=== PATIENT | female | born 1945 | race Two or more races ===

== ENCOUNTER → 2023-11-10 11:29 | Outpatient (REF) | payer MEDICARE, BC, SELFPAY ==
[2023-11-10 13:09] LABS: % Basophils 0.8 % (0-2); % Eosinophils 2.8 % (0-6); % Immature Granulocytes 0.6 % (0-0.5); % Lymphocytes 24.6 % (20.5-51.1); % Monocytes 9.9 % (1.7-9.3); % Neutrophils 61.3 % (42.2-75.2); Absolute Basophils 0.1 10^3/uL (0-0.2); Absolute Eosinophils 0.3 10^3/uL (0-0.7); Absolute Immature Granulocytes 0.1 10^3/uL (0-0.05); Absolute Lymphocytes 2.2 10^3/uL (1.2-3.4); Absolute Monocytes 0.9 10^3/uL (0.1-0.6); Absolute Neutrophils 5.4 10^3/uL (1.4-6.5); Hematocrit 30.3 % (37.0-47.0); Hemoglobin 9.8 g/dL (12.0-16.0); Mean Corp Hgb Conc. 32.3 g/dL (33.0-37.0); Mean Corpuscular Hgb 34.1 pg (27.0-31.0); Mean Corpuscular Volume 105.6 fL (81.0-99.0); Mean Platelet Volume 10.5 fL (7.4-10.4); Nucleated Red Blood Cells % 0 %; Platelet Count 349 10^3/uL (130-400); Red Blood Cell Count 2.87 10^6/uL (4.20-5.40); Red Cell Dist. Width 13.5 % (11.5-14.5); White Blood Cell Count 8.9 10^3/uL (4.8-10.8)
[2023-11-10 13:23] LABS: ALT (SGPT) 22 U/L (0-35); AST (SGOT) 26 U/L (14-36); Albumin 4.1 g/dl (3.5-5.0); Alkaline Phosphatase 51 U/L (38-126); Blood Urea Nitrogen 18 mg/dl (7-17); Calcium 9.4 mg/dl (8.4-10.2); Carbon Dioxide 25 mmol/L (22-30); Chloride 100 mmol/L (98-107); Glucose 93 mg/dl (70-99); Potassium 4.6 mmol/L (3.5-5.1); Sodium 135 mmol/L (135-145); Total Bilirubin 0.6 mg/dl (0.2-1.3); Total Protein 6.5 g/dl (6.3-8.2); eGFR > 60.00
[2023-11-10 13:37] LABS: Free T4 1.07 ng/dl (0.78-2.19); Vitamin D, 25-OH*** 36.8 ng/mL (30-80)
[2023-11-10 13:50] LABS: TSH Reflex To Free T4 5.71 uIU/ml (0.47-4.68)
[2023-11-12 14:35] LABS: Iron 31 ug/dl (37-170)
[2023-11-12 15:43] LABS: Folate > 20.0 ng/ml (2.76-20); Vitamin B12 384 pg/ml (239-931)
== END ==
LOC: OLABPV 11:29
PROVIDERS: ATTENDING PHYSICIAN Nurse Practitioner Family
DX: R53.83 Other fatigue (principal); E55.9 Vitamin D deficiency, unspecified; I10 Essential (primary) hypertension; R79.9 Abnormal finding of blood chemistry, unspecified; Z79.899 Other long term (current) drug therapy
CPT/HCPCS: 36415; 80053; 82306; 82565; 82607; 82728; 82746; 83540; 84439; 84443; 85025

== ENCOUNTER → 2025-01-30 17:43 | Outpatient (REF) | payer MEDICARE, BC, SELFPAY ==
[2025-01-30 18:05] LABS: Urine Character Clear (Clear)
[2025-01-30 18:12] LABS: Urine Red Blood Cell 0-2 /HPF (0-2); Urine Squamous Cell 0-2 /LPF (Few)
== END ==
LOC: OLABPV 17:43
PROVIDERS: ATTENDING PHYSICIAN Nurse Practitioner Family
DX: R39.9 Unspecified symptoms and signs involving the genitourinary system (principal)
CPT/HCPCS: 81003; 81015; 87086

== ENCOUNTER 2025-04-23 19:44 | Emergency (ER) | payer MEDICARE, BC, SELFPAY ==
[2025-04-23 19:46] VITALS: BP 113/69
[2025-04-23 20:13] LABS: Hematocrit 39.2 % (37.0-47.0); Hemoglobin 13.2 g/dL (12.0-16.0); Mean Corp Hgb Conc. 33.7 g/dL (33.0-37.0); Mean Corpuscular Volume 102.6 fL (81.0-99.0); Nucleated Red Blood Cells % 0 %; Platelet Count 198 10^3/uL (130-400); Red Cell Dist. Width 12.9 % (11.5-14.5)
--- NOTE | 2025-04-23 20:29 | EDRN ---
Kaye Colinzger [phone] [address]. CALL FOR A RIDE
[2025-04-23 20:31] LABS: ALT (SGPT) 17 U/L (0-35); AST (SGOT) 26 U/L (14-36); Albumin 4.3 g/dl (3.5-5.0); Alkaline Phosphatase 52 U/L (38-126); Blood Urea Nitrogen 16 mg/dl (7-17); Calcium 8.6 mg/dl (8.4-10.2); Carbon Dioxide 25 mmol/L (22-30); Chloride 97 mmol/L (98-107); Glucose 89 mg/dl (70-99); Potassium 4.2 mmol/L (3.5-5.1); Sodium 132 mmol/L (135-145); Total Protein 7.0 g/dl (6.3-8.2); eGFR > 60.00
--- NOTE | 2025-04-23 23:06 | ED.GENMED ---
History of Present Illness
General
Chief Complaint: Fall
Source: patient
Exam Limitations: none
Time Seen by Provider: 04/23/25 23:04
Nursing documentation reviewed up to this point in time: agreed with
History of Present Illness
History of Present Illness:
Note:
CHIEF COMPLAINT(S)
Fall
HISTORY OF PRESENT ILLNESS
The patient is an 80-year-old female with past medical history of hypertension on lisinopril and hlp on atorvastatin who presented to the ER after a bump on her head following a fall in her garage. She recalls exiting her vehicle, walking to the
passenger side, and then finding herself on the ground. She was aware of her surroundings during the event and unsure the exact mechanism of the fall but she insists that she did not lose consciousness, and reports that she was wake the entire time.
She believes that she may have lost her footing. She denies lightheadedness, or dizziness. I spoke to staff from [facility] and they report that a bystander saw her on the ground near her car and called security who subsequently
called EMS. I spoke to security and they state that she was ambulatory after the fall and she was helped up and EMS was called. She denies any current pain, neck pain, headache, pain in her extremities. She denies any abdominal pain. She denies
any urinary frequency, burning with urination, fevers or chills. She is feeling her normal self.
No concern for altered mental status from family. Apparently, a bystander at [employer] noted a slur in her voice but currently her speech is clear I spoke to staff from [employer] he denies speech changes.
ADDITIONAL HISTORY OBTAINED FROM SOURCES OTHER THAN THE PATIENT
Her brother, who was present, confirmed some details of the incident but specifics about the fall were unclear.
SOCIAL DETERMINANTS AFFECTING HEALTH
Patient reports that she has family who helps her with ADLs
MEDICATIONS
- Lisinopril
- Losartan
- Tylenol (as needed for arthritis)
- Atorvastatin
REVIEW OF SYSTEMS
- Neurological: No loss of consciousness, no dizziness, or lightheadedness. No numbness, tingling, or weakness in extremities.
- Genitourinary: Longstanding urinary frequency; no new symptoms such as burning or increased urgency.
- Musculoskeletal: No pain reported in extremities or along the spine.
- Integumentary: Presence of scalp hematoma without pain.
PHYSICAL EXAM
General: Alert, no acute distress.
Skin: Presence of a right scalp hematoma, non-tender. Warm, dry.
No laceration, no abrasion.
Head: Scalp hematoma. No tenderness palpation of the facial bones. TMJ joints intact bilaterally.
Neck: No midline spinal tenderness. Supple, trachea midline. No pain on palpation.
Eyes, Ears, Nose, Mouth, and Throat: Oral mucosa moist, pupil reaction and movement intact.
Cardiovascular: Regular rate and rhythm, no murmurs. Normal peripheral perfusion, no edema.
Respiratory: Normal respiratory effort, no wheezes, rales, rhonchi. Respirations non-labored.
Gastrointestinal: No abdominal tenderness to palpation, no signs of trauma. Abdomen nondistended.
Back: Normal range of motion, no pain along the spine.
Musculoskeletal: Normal range of motion, normal strength. 5 of 5 strength in bilateral upper and lower extremities. Normal gait.
Neurological: Cranial nerves II through XII intact. Alert and oriented to person, place, time, and situation. No focal neurological deficits observed. Coordination tests performed without abnormality.
Psychiatric: Cooperative, appropriate mood and affect.
PLAN
The patient will be monitored for any additional symptoms or complications resulting from the fall. CT scans be performed. The scalp hematoma will be managed conservatively with observation. Patient is advised to return if she experiences any new
or worsening symptoms, such as headaches, weakness, or confusion.. Blood work to be monitored for any concerns. Patient reassured and informed about signs to monitor at home. Continuing current medications.
DIFFERENTIAL DIAGNOSIS
The Differential Diagnosis includes, in no particular order and is not limited to:
- Mechanical fall
- Syncope
- Orthostatic hypotension
- Transient ischemic attack
- Neuropathy
- Dehydration
- Urinary tract infection
- Vestibular dysfunction
- Medication side effects
CHART REVIEW
Reviewed [facility] chart, no records for review
Reviewed [facility], no prior ER/documentation for review or discharge summaries to review
MDM/DISPOSITION
80-year-old female presents to the ER today with concerns of a fall. She is not sure exactly how it have been but remembers possibly losing her footing when she was getting multiple items out of her car. There was question initially from bystander
about slurred speech however spoke to [employer] staff with was not concerned about mental status. Patient and family not concerned. On my physical exam, patient has clear speech and is fully oriented. She has normal neurologic exam. Normal finger
to nose, [id number]. Normal gait. She has no signs of trauma on her abdomen, no tenderness palpation. No tenderness to palpation in the upper and lower extremities.
CT scan of the head shows no acute intracranial abnormality. Does show a scalp hematoma. Cervical spine CT shows no osseous injury in the cervical spine. Patient states that she feels well and is requesting to go home. Patient reports that she
was fully conscious during all of these events, does not sound like there was an episode of syncope however in light of not being able to recall the exact mechanism of the fall, ecg and labs were checked to assess if there was anything that could of
potentially contributed to a syncopal episode. ECG reveals PVCs as well as mildly prolonged QT. Patient is apparently aware of these ECG changes and reports that she is evaluated by a polytechn[employer] registrar [place]. Discussed with ED
attending. Will check orthos.
Patient had normal orthostatic vital signs. She denies dizziness or lightheadedness at this time. She is in normal neurologic exam. Vital signs are stable. Patient feels well. Discussed follow-up with PCP and establishing care with a new
polytechnic registrar in [place]. Patient expressed understanding. Patient stable for discharge.
Review of Systems
Review of Systems
All Other Systems: ROS reviewed and negative except as documented in HPI and ROS
Phy Exam
Physical Exam
Physical Exam:
see hpi
Course
Orders/Labs/Results
Orders:
Orders
04/23/25 19:[address] [CT Head W/o Iv Contrast] Urgent
Comment:
Reason For Exam: fall with unknown head strike
04/23/25 19:55
CT Cervical Spine W/o Iv Contr Urgent
Comment:
Reason For Exam: fall
04/23/25 19:59
Complete Blood Count/With Diff Urgent
Comprehensive Metabolic Panel Urgent
04/23/25 23:20
Electrocardiogram (*1) Urgent
Reason for Study: Syncope
EKG- Treatment ONCE
04/23/25 23:43
Orthostatic VS- Treatment ONCE
Abnormal Lab Results
04/23/25
19:59
RBC 3.82 L 10^6/uL
(4.20-5.40)
MCV 102.6 H fL
(81.0-99.0)
MCH 34.6 H pg
(27.0-31.0)
Abs Immat Gran (auto) 0.1 H 10^3/uL
(0-0.05)
Immature Gran % 0.8 H %
(0-0.5)
Sodium 132 L mmol/L
(135-145)
Chloride 97 L mmol/L
(98-107)
04/23/25 19:59
04/23/25 19:59
Vital Signs
Initial and Last Documented VS:
Initial Vital Signs
Temp Pulse Resp BP Pulse Ox
97.5 F 72 16 113/69 94
04/23/25 19:46 04/23/25 19:46 04/23/25 19:46 04/23/25 19:46 04/23/25 19:46
Last Documented Vital Signs
Temp Pulse Resp BP Pulse Ox
97.5 F 72 16 113/69 94
04/23/25 19:46 04/23/25 19:46 04/23/25 19:46 04/23/25 19:46 04/23/25 23:09
*Pulse Oximetry
SaO2: 94
Oxygen Mode of Delivery: Room air
Patient hypoxic: no
*Critical Care Note
Total Time (30-74mins, 75-104mins- exclusive of procedures): Not Applicable
ED Attending Note
-
Portions of this chart may have been created with voice recognition software.� Occasional wrong word or��sound alike� substitutions may have occurred due to the inherent limitations of voice recognition software.
Discharge Plan
Departure
Patient Disposition: Home (Routine Discharge)
Date of Disposition: 04/24/25
Time of Disposition: 00:27
Patient with high blood pressure during this ER visit?: No
Condition: Good
Discharge Problem:
Fall, Hematoma of right parietal scalp
Instructions: Preventing falls in adults, BLOOD PRESSURE
Referrals:
Tone Harrison MD [Active, Cardiology] - Call in 1-3 days for appt
Melia Stiles CRNP [Family Provider]
Activity Restrictions/Additional Instructions:
As discussed, please follow up with your primary care provider and cardiology.
Your CT scan showed no evidence of intracranial bleeding or injury. Your CT scan showed no evidence of osseous injury of the cervical spine.
PLEASE RETURN TO ER SHOULD YOU DEVELOP CHEST PAIN, SHORTNESS OF BREATH, DIZZINESS, LIGHTHEADEDNESS, PALPITATION, FAINTING SPELLS, PERSISTENT HEADACHE, INTRACTABLE NAUSEA OR VOMITING, OR ANY OTHER SIGNS OR SYMPTOMS WORRISOME TO YOU.
Interventions
Interventions:
*Risk Screen - Suicide Last Done: 04/24/25 00:35
*General Assessment Last Done: 04/24/25 00:35
*Neglect/Abuse Screening Last Done: 04/24/25 00:35
*ED- Fall Risk Assessment Last Done: 04/23/25 19:50
*ED COVID-19 Vaccine History Last Done: 04/23/25 19:50
*ED Influenza Vaccine History Last Done: 04/23/25 19:50
*Nursing Disposition Last Done: 04/24/25 00:35
ED-Musculoskeletal Assessment Last Done: 04/24/25 00:34
ED- Neurological Assessment Last Done: 04/24/25 00:34
ED-Skin Assessment Last Done: 04/24/25 00:34
Discharge Date and Time
Discharge Date/Time: 04/24/25 00:36
Print Language: UPPER SORBIAN
[2025-04-24 00:26] VITALS: BP 128/77; BP 140/72; BP 143/83
== END 2025-04-24 00:36 | disposition home or self-care (01) ==
LOC: EMR 19:44
PROVIDERS: Emergency Medicine; EMERGENCY PHYSICIAN Emergency Medicine; FAMILY PHYSICIAN Nurse Practitioner Family
DX: S00.03XA Contusion of scalp, initial encounter (principal); W18.39XA Other fall on same level, initial encounter; Y92.094 Garage of other non-institutional residence as the place of occurrence of the external cause; I10 Essential (primary) hypertension; E78.5 Hyperlipidemia, unspecified; Z79.899 Other long term (current) drug therapy
CPT/HCPCS: 99284; 70450; 72125; 80053; 85025; 93005